=== PATIENT | female | born 1990 | race Two or more races ===

== ENCOUNTER 2021-08-09 10:56 | Inpatient (IN) | payer MEDICAID, OTHER ==
[~2021-08-09] VITALS: Ht 170.2 cm; Wt 70.1 kg
[2021-08-09] MEDS ORDERED: SODIUM CHLORIDE 0.9% 1,000 ML IV ONE (13:45)
[2021-08-09 14:16] LABS: BASOPHILS % 0.5 % (0.0-2.0); EOSINOPHILS % 0.4 % (0.0-5.0); LYMPHOCYTES % 28.9 % (20.0-50.0); MEAN CORPUSCULAR HEMOGLOBIN 27.4 pg (28.0-32.0); MEAN CORPUSCULAR VOLUME 82.1 fL (81.0-99.0); MONOCYTES % 8.9 % (2.0-8.0); NEUTROPHILS % 61.3 % (40.0-76.0); PLATELET 263 x1000/uL (130-400); RED CELL DISTRIBUTION WIDTH 16.9 % (11.6-14.6)
[2021-08-09 14:18] LABS: CHLORIDE 111 mEq/L (98-107)
[2021-08-09 14:21] LABS: HEMATOCRIT. 15.6 % (36.0-48.0); HEMOGLOBIN. 5.2 g/dL (12.0-16.0)
[2021-08-09 15:17] LABS: PROTHROMBIN TIME 10.8 sec (9.6-11.0)
[2021-08-09 17:02] LABS: CLARITY URINE TURBID (CLEAR); COLOR URINE DARK YELLOW (YELLOW); KETONES URINE TRACE (NEGATIVE); LEUKOCYTE ESTERASE URINE TRACE (NEGATIVE); NITRITE URINE NEGATIVE (NEGATIVE); OCCULT BLOOD URINE 3+ (NEGATIVE); PH URINE 5.5 (4.5-8.0); PROTEIN URINE 2+ (NEGATIVE); SPECIFIC GRAVITY URINE 1.026 (1.005-1.030)
[2021-08-09] MEDS ORDERED: ONDANSETRON HCL 4MG/2ML INJ IV PRN (18:30)
[2021-08-09] MEDS ORDERED: ESTROGENS,CONJUGATED 25MG/VIAL IV SCH (20:00)
[2021-08-09 21:40] VITALS: BP 108/57
[2021-08-09] MEDS: IRON SUCROSE COMPLEX 100 MG/5 ML ML IV SCH (23:06)
[2021-08-09] MEDS: ESTROGENS,CONJUGATED 1.25MG TABLET PO SCH (23:06)
[2021-08-09] MEDS: HYDROCODONE/ACETAMINOPHEN 10/325MG TABLET PO PRN (23:12)
[2021-08-10] VITALS (13 sets, daily range): BP systolic 96–121; BP diastolic 52–72
[2021-08-10 00:18] LABS: HEMATOCRIT 16.7 % (36.0-48.0); HEMOGLOBIN 5.6 g/dL (12.0-16.0)
[2021-08-10] MEDS: HYDROCODONE/ACETAMINOPHEN 10/325MG TABLET PO PRN ×3 (04:26→19:57)
[2021-08-10] MEDS ORDERED: POTASSIUM CHLORIDE 20MEQ TABLET SR PO NR (08:15)
[2021-08-10] MEDS: ESTROGENS,CONJUGATED 1.25MG TABLET PO SCH ×4 (10:03→20:14)
[2021-08-10] MEDS ORDERED: ACETAMINOPHEN 325MG TABLET PO PRN (20:45)
[2021-08-10] MEDS: IRON SUCROSE COMPLEX 100 MG/5 ML ML IV SCH (22:10)
[2021-08-10] MEDS ORDERED: HYDROCODONE/ACETAMINOPHEN 10/325MG TABLET PO PRN (23:40)
[2021-08-11] VITALS (7 sets, daily range): BP systolic 99–123; BP diastolic 44–65
[2021-08-11 07:18] LABS: HEMATOCRIT 23.2 % (36.0-48.0); HEMOGLOBIN 7.9 g/dL (12.0-16.0)
[2021-08-11] MEDS: ESTROGENS,CONJUGATED 1.25MG TABLET PO SCH (08:24)
[2021-08-11] MEDS ORDERED: FERR-71 MT (08:52)
[2021-08-11] MEDS ORDERED: DOCU-138 MT (08:52)
[2021-08-11] MEDS ORDERED: PR125 MT (08:52)
[2021-08-11 13:30] LABS: *AMPHETAMINES SCREEN URINE NEGATIVE (NEGATIVE); *BARBITURATES SCREEN URINE NEGATIVE (NEGATIVE); *COCAINE SCREEN URINE NEGATIVE (NEGATIVE); METHADONE URINE SCREEN NEGATIVE (NEGATIVE)
[2021-08-11 13:31] LABS: *BENZODIAZEPINES SCREEN URINE NEGATIVE (NEGATIVE); PHENCYCLIDINE URINE SCREEN NEGATIVE (NEGATIVE)
[2021-08-11 13:33] LABS: CANNABINOID URINE SCREEN PRESUMTIVE POSITIVE (NEGATIVE); OPIATES URINE SCREEN PRESUMTIVE POSITIVE (NEGATIVE)
== END 2021-08-11 12:45 | disposition home or self-care (01) | DRG 532 ==
LOC: ER 13:13 → EDBEDREQ 14:52 → EDBEDREQTM 15:26 → 8WST 16:01 → EDBEDREQTM 16:04 → EDBEDREQ 16:04 → ENRESERV 19:52
PROVIDERS: ADMIT Internal Medicine; ATTEND Internal Medicine
PROC: 30233N1 Transfusion of Nonautologous Red Blood Cells into Peripheral Vein, Percutaneous Approach (ICD-10-PCS; principal; 2021-08-09)
DX: N92.0 Excessive and frequent menstruation with regular cycle (principal); E44.0 Moderate protein-calorie malnutrition; E87.8 Other disorders of electrolyte and fluid balance, not elsewhere classified; D64.9 Anemia, unspecified; E87.6 Hypokalemia; F41.9 Anxiety disorder, unspecified; Z63.5 Disruption of family by separation and divorce; Z80.1 Family history of malignant neoplasm of trachea, bronchus and lung; Z80.3 Family history of malignant neoplasm of breast; Z82.5 Family history of asthma and other chronic lower respiratory diseases; Z88.6 Allergy status to analgesic agent; Z68.24 Body mass index [BMI] 24.0-24.9, adult
CPT/HCPCS: 36415; 71045; 76830; 76856; 80053; 80305; 81003; 84702; 85014; 85018; 85025; 85044; 86850; 86900; 86920; 93005; 99285; J2405; J7030; J7040; P9016

== ENCOUNTER 2024-02-23 07:03 | Emergency (ER) | payer MEDICAID ==
[~2024-02-23 07:03] MED LIST: DOCU-138 MT; FERR-71 MT; PR125 MT
[2024-02-23 07:50] VITALS: TEMP 37.00296; O2SAT 99
[2024-02-23 08:15] LABS: CLARITY URINE CLOUDY (CLEAR); COLOR URINE YELLOW (YELLOW); GLUCOSE URINE NEGATIVE (NEGATIVE); KETONES URINE NEGATIVE (NEGATIVE); LEUKOCYTE ESTERASE URINE 3+ (NEGATIVE); NITRITE URINE NEGATIVE (NEGATIVE); OCCULT BLOOD URINE NEGATIVE (NEGATIVE); PH URINE 7.5 (4.5-8.0); PROTEIN URINE TRACE (NEGATIVE); SPECIFIC GRAVITY URINE 1.016 (1.005-1.030)
[2024-02-23 08:22] VITALS: BP 108/78; PULSE 69; RESP 16
[2024-02-23] MEDS: KETOROLAC 30MG/ML VIAL IV STA (08:22)
[2024-02-23] MEDS: ONDANSETRON HCL 4MG/2ML INJ IV STA (08:22)
[2024-02-23] MEDS: SODIUM CHLORIDE 0.9% 1,000 ML IV ONE (08:22)
[2024-02-23 08:32] LABS: BASOPHILS % 0.4 % (0.0-2.0); EOSINOPHILS % 2.7 % (0.0-5.0); HEMATOCRIT. 39.6 % (36.0-48.0); LYMPHOCYTES % 19.8 % (20.0-50.0); MEAN CORPUSCULAR HEMOGLOBIN 31.1 pg (28.0-32.0); MEAN CORPUSCULAR HGB CONC 32.7 g/dL (31.0-37.0); MEAN CORPUSCULAR VOLUME 94.9 fL (81.0-99.0); MONOCYTES % 7.3 % (2.0-8.0); NEUTROPHILS % 69.8 % (40.0-76.0); PLATELET 287 x1000/uL (130-400); RED BLOOD CELL COUNT 4.17 mill/uL (4.2-5.4); RED CELL DISTRIBUTION WIDTH 14.7 % (11.6-14.6); WHITE BLOOD COUNT 9.8 x1000/uL (4.5-11.0)
[2024-02-23 08:34] LABS: SQUAMOUS EPITHELIAL CELL URINE 1+ /lpf (RARE/1+)
[2024-02-23 08:38] LABS: BACTERIA URINE TRACE; RBC URINE 0-2 /hpf (0-2); WBC URINE TNTC /hpf (0-2)
[2024-02-23 08:39] LABS: MUCUS URINE 1+ /lpf (< = 2+)
[2024-02-23 08:43] LABS: INR 0.9; PROTHROMBIN TIME 10.3 sec (9.6-11.0)
[2024-02-23 08:44] LABS: CHLORIDE 110 mEq/L (98-107); POTASSIUM 3.8 mEq/L (3.5-5.1); SODIUM 139 mEq/L (136-145)
[2024-02-23 08:45] LABS: CARBON DIOXIDE 23 mEq/L (21-32)
[2024-02-23 08:46] LABS: CALCIUM 8.3 mg/dL (8.7-10.4)
[2024-02-23 08:50] LABS: CREATININE 0.6 mg/dL (0.6-1.0); GLUCOSE 93 mg/dL (70-105); UREA NITROGEN BLOOD 6 mg/dL (9-23)
[2024-02-23 08:52] LABS: ALANINE AMINOTRANSFERASE 12 IU/L (10-49); ALBUMIN 3.5 g/dL (3.2-4.8); ASPARTATE AMINOTRANSFERASE 19 IU/L (<34)
[2024-02-23 08:53] LABS: BILIRUBIN TOTAL 0.3 mg/dL (0.1-1.0); PROTEIN TOTAL 5.7 g/dL (6.0-8.3)
[2024-02-23 08:54] LABS: BILIRUBIN DIRECT < 0.1 mg/dL (<=3.0)
[2024-02-23] MEDS ORDERED: NITR100C PO (08:55)
[2024-02-23] MEDS ORDERED: ONDA4TAB50 PO (08:57)
[2024-02-23] MEDS ORDERED: TOPUD PO (08:57)
[2024-02-23 08:59] LABS: HCG SCREEN NEGATIVE
== END 2024-02-23 09:17 | disposition home or self-care (01) ==
LOC: ER 07:03
DX: N39.0 Urinary tract infection, site not specified (principal); Z88.6 Allergy status to analgesic agent; Z79.899 Other long term (current) drug therapy; Z98.890 Other specified postprocedural states
CPT/HCPCS: 99284; 96374; 96361; 96375; 80076; 80048; 81003; 84703; 83690; 85025; 85610; 87086; 36415; J1885; J2405; J7030

== ENCOUNTER 2024-09-29 20:25 | Emergency (ER) | payer MEDICAID, OTHER ==
[~2024-09-29] VITALS: Ht 170.2 cm; Wt 72.0 kg
[~2024-09-29 20:25] MED LIST changes: +NITR100C PO; +ONDA4TAB50 PO; +TOPUD PO
[2024-09-29 20:42] VITALS: O2SAT 98
[2024-09-29 21:48] VITALS: BP 115/75; PULSE 90; RESP 18; TEMP 36.9; O2SAT 100
[2024-09-30] MEDS ORDERED: ALBU18HF2 IH (00:44)
[2024-09-30] MEDS ORDERED: BENZ100C86 MT (00:44)
== END 2024-09-30 01:09 | disposition home or self-care (01) ==
LOC: ER 20:25
DX: B34.9 Viral infection, unspecified (principal); J45.909 Unspecified asthma, uncomplicated; Z98.890 Other specified postprocedural states; Z79.899 Other long term (current) drug therapy
CPT/HCPCS: 71045; 99283

== ENCOUNTER 2025-03-17 21:52 | Emergency (ER) | payer OTHER ==
[~2025-03-17] VITALS: Ht 170.2 cm; Wt 73.0 kg
[~2025-03-17 21:52] MED LIST changes: +ALBU18HF2 IH; +BENZ100C86 MT
[2025-03-17 22:05] VITALS: O2SAT 93
[2025-03-17] MEDS: PREDNISONE 20MG TABLET PO ONE (23:00)
[2025-03-17] MEDS: ACETAMINOPHEN 325MG TABLET PO ONE (23:00)
[2025-03-17] MEDS: IPRATROPIUM/ALBUTEROL 0.5-3(2.5)MG/3ML NEB HHN ONE (23:02)
[2025-03-17] MEDS ORDERED: ACET-2708 MT (23:10)
[2025-03-17] MEDS ORDERED: ALBU18HF2 IH (23:10)
[2025-03-17] MEDS ORDERED: P50 MT (23:10)
[2025-03-17 23:29] VITALS: BP 105/62; PULSE 92; RESP 14; TEMP 37.2; O2SAT 97
[2025-03-18 07:37] LABS: INFLUENZA TYPE A Presumptive Negative (Pres. Neg.)
[2025-03-18 07:39] LABS: INFLUENZA TYPE B Presumptive Negative (Pres. Neg.)
== END 2025-03-17 23:49 | disposition home or self-care (01) ==
LOC: ER 21:52
DX: R05.9 Cough, unspecified (principal); R50.9 Fever, unspecified; J45.909 Unspecified asthma, uncomplicated; Z88.6 Allergy status to analgesic agent; Z20.822 Contact with and (suspected) exposure to COVID-19
CPT/HCPCS: 99284; 71045; 87426; 81025; 87804 ×2; J7512